=== PATIENT | male | born 1955 | race Caucasian/White ===

== ENCOUNTER → 2018-01-29 14:30 | Outpatient (REF) | payer OTHER, SELFPAY ==
[2018-01-29 18:24] LABS: Basophils % 0.6 % (0.1-2.0); Eosinophils # 0.2 K/mm3 (0.0-0.4); Eosinophils % 2.3 % (0.1-12.0); Hematocrit 43.5 % (42.0-52.0); Hemoglobin 14.2 g/dL (14.1-18.0); Lymphocytes # 1.7 K/mm3 (0.7-4.5); Lymphocytes % 24.1 K/mm3 (10-50); Mean Corpuscular HGB Conc 32.6 g/dL (31.8-35.4); Mean Corpuscular Hemoglobin 30.4 pg (27.0-31.2); Mean Corpuscular Volume 93.2 fl (80-94); Mean Platelet Volume 8.1 fl (7.4-10.4); Monocytes # 0.5 K/mm3 (0.1-1.0); Monocytes % 6.6 % (1.7-9.3); Neutrophils # 4.5 K/mm3 (1.8-7.8); Neutrophils % 66.3 % (37.0-80.0); Platelet Count 228 K/mm3 (142-424); Red Blood Count 4.67 M/mm3 (4.60-6.20); Red Cell Distribution Width 14.1 % (11.5-17.5); White Blood Count 6.8 K/mm3 (4.8-10.8)
[2018-01-29 19:32] LABS: Hemoglobin A1C 5.6 % (0.0-7.0)
[2018-01-29 20:44] LABS: Alanine Aminotransferase 35 U/L (12-78); Albumin Level 3.8 gm/dL (3.4-5.0); Alkaline Phosphatase 88 U/L (46-116); Anion Gap 14.1 mEq/L (5-15); Aspartate Amino Transferase 21 U/L (15-37); Bilirubin,Total 0.6 mg/dL (0.2-1.0); Blood Urea Nitrogen 13 mg/dL (7-18); Calcium 9.3 mg/dL (8.5-10.1); Carbon Dioxide 26 mmol/L (21.0-32.0); Chloride 102 mmol/L (98-107); Chol/HDL Ratio 5.9 (1-3.5); Cholesterol 184 mg/dL (140-200); Estimated Glomerular Filt Rate 76 ml/min (>60); Free T4 (Free Thyroxine) 0.95 ng/dl (0.76-1.46); GFR (African American) 92 ML/MIN (>60); Globulin 3.9 gm/dl (1.3-3.2); Glucose 83 mg/dL (74-106); HDL Cholesterol 31 mg/dL (27-67); Potassium 4.1 mmoL/L (3.5-5.1); Sodium 138 mmol/L (136-145); Thyroid Stimulating Hormone 1.89 uIU/ml (0.358-3.740); Total Protein,Serum 7.7 gm/dL (6.4-8.2); Triglycerides 427 mg/dL (30-200)
[2018-01-31 18:28] LABS: Vitamin D 25 Hydroxy 29.5 ng/mL (30.0-100.0)
== END ==
LOC: LAB 14:30
PROVIDERS: Visit Provider Nurse Practitioner Family
DX: R53.83 Other fatigue (principal)
CPT/HCPCS: 80053; 80061; 82652; 83036; 84439; 84443; 85025

== ENCOUNTER → 2018-05-22 14:05 | Outpatient (CLI) | payer OTHER, SELFPAY ==
[2018-05-22 15:06] LABS: Alanine Aminotransferase 38 U/L (12-78); Albumin/Globulin Ratio 1.1 (1.1-1.8); Alkaline Phosphatase 79 U/L (46-116); Anion Gap 14.3 mEq/L (5-15); Aspartate Amino Transferase 22 U/L (15-37); Bilirubin,Total 0.5 mg/dL (0.2-1.0); Blood Urea Nitrogen 9 mg/dL (7-18); Calcium 9.3 mg/dL (8.5-10.1); Carbon Dioxide 28 mmol/L (21.0-32.0); Chloride 102 mmol/L (98-107); Chol/HDL Ratio 5.5 (1-3.5); Cholesterol 176 mg/dL (140-200); Creatinine,Serum 1.06 mg/dL (0.70-1.30); Estimated Glomerular Filt Rate 71 ml/min (>60); GFR (African American) 85 ML/MIN (>60); Globulin 3.8 gm/dl (1.3-3.2); Glucose 71 mg/dL (74-106); HDL Cholesterol 32 mg/dL (27-67); LDL Cholesterol 87 mg/dL (0-130); Potassium 4.3 mmoL/L (3.5-5.1); Sodium 140 mmol/L (136-145); T4 (Thyroxine) 8.4 ug/dl (4.7-13.3); Thyroid Stimulating Hormone 1.68 uIU/ml (0.358-3.740); Total Protein,Serum 7.8 gm/dL (6.4-8.2); Triglycerides 286 mg/dL (30-200); VLDL Cholesterol 57 mg/dL (0-40)
[2018-05-22 15:19] LABS: Basophils # 0.1 K/mm3 (0-0.2); Basophils % 0.9 % (0.1-2.0); Eosinophils # 0.1 K/mm3 (0.0-0.4); Eosinophils % 2.2 % (0.1-12.0); Hematocrit 42.7 % (42.0-52.0); Lymphocytes # 1.6 K/mm3 (0.7-4.5); Lymphocytes % 28.3 % (10-50); Mean Corpuscular HGB Conc 32.9 g/dL (31.8-35.4); Mean Corpuscular Hemoglobin 29.8 pg (27.0-31.2); Mean Corpuscular Volume 90.8 fl (80-94); Mean Platelet Volume 8.7 fl (7.4-10.4); Monocytes # 0.4 K/mm3 (0.1-1.0); Monocytes % 6.3 % (1.7-9.3); Neutrophils # 3.5 K/mm3 (1.8-7.8); Neutrophils % 62.3 % (37.0-80.0); Platelet Count 231 K/mm3 (142-424); Red Blood Count 4.71 M/mm3 (4.60-6.20); Red Cell Distribution Width 13.8 % (11.5-17.5); White Blood Count 5.6 K/mm3 (4.8-10.8)
[2018-05-23 12:15] LABS: PSA, Free 0.35 ng/mL; Prostate Specific Ag 2.8 ng/mL (0.0-4.0); Vitamin D 25 Hydroxy 32.2 ng/mL (30.0-100.0)
[2018-05-26 06:09] LABS: Testosterone, Total, LC/MS 269.9 ng/dL (264.0-916.0); Testosterone,Free 5.3 pg/mL (6.6-18.1)
== END ==
PROVIDERS: PCP Nurse Practitioner Family; Visit Provider Nurse Practitioner Family
DX: F52.0 Hypoactive sexual desire disorder (principal); R53.83 Other fatigue
CPT/HCPCS: 80053; 80061; 82652; 84153; 84154; 84402; 84403; 84436; 84443; 85025

== ENCOUNTER → 2020-07-20 14:04 | Outpatient (CLI) | payer MEDICARE, MEDICAID, SELFPAY ==
[2020-07-20 14:17] LABS: Basophils # 0.1 K/mm3 (0-0.2); Basophils % 0.8 % (0.1-2.0); Eosinophils # 0.1 K/mm3 (0.0-0.4); Eosinophils % 1.7 % (0.1-12.0); Hematocrit 44.3 % (42.0-52.0); Hemoglobin 14.1 g/dL (14.1-18.0); Lymphocytes # 1.9 K/mm3 (0.7-4.5); Lymphocytes % 26.2 % (10-50); Mean Corpuscular HGB Conc 31.7 g/dL (31.8-35.4); Mean Corpuscular Hemoglobin 29.7 pg (27.0-31.2); Mean Corpuscular Volume 93.6 fl (80-94); Mean Platelet Volume 8.1 fl (7.4-10.4); Monocytes # 0.5 K/mm3 (0.1-1.0); Monocytes % 6.4 % (1.7-9.3); Neutrophils # 4.6 K/mm3 (1.8-7.8); Neutrophils % 64.8 % (37.0-80.0); Platelet Count 229 K/mm3 (142-424); Red Blood Count 4.73 M/mm3 (4.60-6.20); Red Cell Distribution Width 13.9 % (11.5-17.5); White Blood Count 7.1 K/mm3 (4.8-10.8)
[2020-07-20 14:28] LABS: Alanine Aminotransferase 25 U/L (12-78); Albumin Level 4.5 g/dl (3.5-5.0); Albumin/Globulin Ratio 1.3 (1.1-1.8); Alkaline Phosphatase 79 U/L (38-126); Anion Gap 13.2 mEq/L (5-15); Aspartate Amino Transferase 25 U/L (17-59); Bilirubin,Total 0.8 mg/dl (0.2-1.3); Blood Urea Nitrogen 17 mg/dl (9-20); Carbon Dioxide 28 mmol/L (22.0-30.0); Chloride 100 mmol/L (98-107); Chol/HDL Ratio 4.3 (1-3.5); Cholesterol 194 mg/dl (140-200); Estimated Glomerular Filt Rate 75 ml/min (>60); GFR (African American) 91 ML/MIN (>60); Globulin 3.4 g/dL (1.3-3.2); Glucose 108 mg/dl (74-100); HDL Cholesterol 45 mg/dl (40-60); Potassium 4.2 mmoL/L (3.5-5.1); Sodium 137 mmol/L (136-145); Total Protein,Serum 7.9 g/dl (6.3-8.2); Triglycerides 270 mg/dl (30-150); VLDL Cholesterol 54 mg/dL (0-40)
[2020-07-20 14:38] LABS: Direct LDL Cholesterol 102.12 mg/dL (100-129)
[2020-07-20 14:47] LABS: Free T4 (Free Thyroxine) 1.12 ng/dl (0.78-2.19)
[2020-07-20 15:02] LABS: Prostate Specific Ag Screen 2.6 ng/ml (0.0-4.0); Thyroid Stimulating Hormone 2.42 uIU/mL (0.465-4.68)
== END ==
PROVIDERS: Visit Provider Nurse Practitioner Family
DX: R53.83 Other fatigue (principal); Z12.5 Encounter for screening for malignant neoplasm of prostate; E78.00 Pure hypercholesterolemia, unspecified
CPT/HCPCS: 80053; 80061; 84439; 84443; 85025; G0103

== ENCOUNTER → 2021-04-17 13:28 | Outpatient (CLI) | payer MEDICARE, MEDICAID, SELFPAY ==
[2021-04-17 14:01] LABS: Chloride 103 mmol/L (98-107); Potassium 5.1 mmoL/L (3.5-5.1); Sodium 137 mmol/L (136-145)
[2021-04-17 14:04] LABS: Anion Gap 12.1 mEq/L (5-15); Blood Urea Nitrogen 12 mg/dl (9-20); Carbon Dioxide 27 mmol/L (22.0-30.0); Estimated Glomerular Filt Rate 97 ml/min (>60); GFR (African American) 117 ML/MIN (>60)
[2021-04-17 14:05] LABS: Calcium 9.7 mg/dl (8.4-10.2); Chol/HDL Ratio 5.4 (1-3.5); Cholesterol 205 mg/dl (140-200); Glucose 103 mg/dl (74-100); HDL Cholesterol 38 mg/dl (40-60); Triglycerides 317 mg/dl (30-150); VLDL Cholesterol 63 mg/dL (0-40)
[2021-04-17 14:17] LABS: Direct LDL Cholesterol 109.74 mg/dL (100-129)
== END ==
PROVIDERS: Visit Provider Nurse Practitioner Family
DX: I10 Essential (primary) hypertension (principal)
CPT/HCPCS: 80048; 80061

== ENCOUNTER 2024-03-25 08:59 | Outpatient (CLI) | payer MEDICARE, MEDICAID, SELFPAY ==
[2024-03-25 19:05] LABS: Basophils # 0.1 K/mm3 (0-0.2); Eosinophils # 0.1 K/mm3 (0.0-0.4); Eosinophils % 1.8 % (0.1-12.0); Hematocrit 49.5 % (42.0-52.0); Hemoglobin 15.3 g/dL (14.1-18.0); Lymphocytes # 1.7 K/mm3 (0.7-4.5); Lymphocytes % 25.9 % (10-50); Mean Corpuscular Hemoglobin 31.6 pg (27.0-31.2); Mean Corpuscular Volume 102.1 fl (80-94); Mean Platelet Volume 10.2 fl (7.4-10.4); Monocytes # 0.4 K/mm3 (0.1-1.0); Monocytes % 5.5 % (1.7-9.3); Neutrophils # 4.3 K/mm3 (1.8-7.8); Neutrophils % 65.8 % (37.0-80.0); Platelet Count 220 K/mm3 (142-424); Red Blood Count 4.85 M/mm3 (4.60-6.20); Red Cell Distribution Width 14.6 % (11.5-17.5); White Blood Count 6.6 K/mm3 (4.8-10.8)
[2024-03-25 19:26] LABS: Alanine Aminotransferase 22 U/L (12-78); Albumin Level 3.9 g/dl (3.5-5.0); Albumin/Globulin Ratio 1.2 (1.1-1.8); Alkaline Phosphatase 77 U/L (38-126); Anion Gap 7.1 mEq/L (5-15); Aspartate Amino Transferase 30 U/L (17-59); Blood Urea Nitrogen 16 mg/dl (9-20); Calcium 9.2 mg/dl (8.4-10.2); Carbon Dioxide 27 mmol/L (22.0-30.0); Chloride 105 mmol/L (98-107); Chol/HDL Ratio 4.1 (1-3.5); Cholesterol 188 mg/dl (140-200); Estimated Glomerular Filt Rate 96 ml/min (>60); GFR (African American) 116 ML/MIN (>60); Globulin 3.3 g/dL (1.3-3.2); Glucose 102 mg/dl (74-100); HDL Cholesterol 46 mg/dl (40-60); Potassium 4.1 mmoL/L (3.5-5.1); Sodium 135 mmol/L (136-145); Total Protein,Serum 7.2 g/dl (6.3-8.2); Triglycerides 178 mg/dl (30-150); VLDL Cholesterol 36 mg/dL (0-40)
[2024-03-25 19:37] LABS: Direct LDL Cholesterol 108.12 mg/dL (100-129)
[2024-03-25 19:42] LABS: 25-OH Vitamin D, Total 32.1 ng/mL (30-100)
[2024-03-25 19:57] LABS: Prostate Specific Ag Screen 2.7 ng/ml (0.0-4.0)
[2024-03-26 08:05] LABS: HIV (1&2) Antibody Rapid NONREACTIVE (NONREACTIVE)
[2024-03-27 09:57] LABS: HBsAg Screen Negative (Negative); HCV Ab Non Reactive (Non Reactive); Hep A Ab, IGM Negative (Negative); Hep B Core Ab, IgM Negative (Negative)
== END 2024-03-25 23:59 | disposition home or self-care (01) ==
LOC: LAB.DROPOF 03-26 13:42
PROVIDERS: PCP Nurse Practitioner Family; Visit Provider Nurse Practitioner Family
DX: K75.9 Inflammatory liver disease, unspecified (principal); I10 Essential (primary) hypertension; Z11.4 Encounter for screening for human immunodeficiency virus [HIV]; Z11.59 Encounter for screening for other viral diseases; Z91.89 Other specified personal risk factors, not elsewhere classified; E55.9 Vitamin D deficiency, unspecified; Z12.5 Encounter for screening for malignant neoplasm of prostate
CPT/HCPCS: 80053; 80061; 80074; 82306; 84443; 85025; 86803; 87389; G0103

== ENCOUNTER 2025-03-23 10:16 | Outpatient (CLI) | payer MEDICARE, MEDICAID, SELFPAY ==
--- OUTSIDE RECORDS SUMMARY | 2025-01-28 09:00 | XMS_ITS | Encounter Summary ---
Author Organization [place] [address] Care Team Providers Care Retaining Room Cutter Name Role Phone Jayjay Brown MD Primary Care Provider + [phone] Reason for Visit * Reason Comments Follow-up Back Pain Medication Refill Encounter Details Date Type Department Care Team (Latest Contact Info) Description 01/28/2025 9:00 AM EDT Office Visit [facility] [address] [place] [address] Andreina Parra APRN [address] [phone] Degeneration of intervertebral disc of lumbar region with discogenic back pain (Primary Dx); Lumbosacral spondylosis without myelopathy; Chronic pain syndrome Social History Tobacco Use Types Packs/Day Years Used Date Smoking Tobacco: Every Day Cigarettes 1.5 50 Smokeless Tobacco: Never Tobacco Cessation:Ready to Q uit: Not Asked; Counseling Given: Not Answered Alcohol Use Standard Drinks/Week Comments Yes 12 (1 standard drink = 0.6 oz pu re alcohol) Per week Sex and Gender Information Value Date Recorded Sex Assigned at Not on file Legal Sex Male 9:23 PM EDT Gender Identity Not on file Sexual Orientation Not on file documented as of this encounter Last Filed Vital Signs Vital Sign Reading Time Taken Comments Blood Pressure - - Pulse - - Temperature - - Respiratory Rate - - Oxygen Saturation - - Inhaled Oxygen Concentration - - Weight 77.1 kg (170 lb) 01/28/2025 9:03 AM EDT Height 177.8 cm (5' 10 ) 01/28/2025 9:03 AM EDT Body Mass Index 24.39 01/28/2025 9:03 AM EDT documented in this encounter Ordered Prescriptions Prescription Sig Dispense Quantity Refills Last Filled Start Date End Date HYDROcodone-acetam inophen (NORCO) 5-325 mg Oral TabletIndications: Lumbosacral spondylosis without myelopathy,Chronic pain syndrome Take 1 Tablet by mouth every 6 hours as needed for Chronic Pain (G89.29) for up to 30 days. 120 Tablet 03/16/2025 5 HYDROcodone-acetam inophen (NORCO) 5-325 mg Oral TabletIndications: Lumbosacral spondylosis without myelopathy,Chronic pain syndrome Take 1 Tablet by mouth every 6 hours as needed for Chronic Pain (G89.29) for up to 30 days. 120 Tablet 02/14/2025 5 documented in this encounter Progress Notes * Andreina Parra, GOGO - 01/28/2025 9:00 AM EDT Images from the original note were not included. Subjective Subjective: Patient ID: Donell Velazco is a 69 y.o. male who presents today for Chief Complaint Patient presents with Follow-up Back Pain Medication Refill HPI: Donell Velazco is a 69 y.o. male who presents for follow-up evaluation regarding their pain. Symptoms are unchanged since last visit. No interventions for pain were performed since last visit. Chronic back pain. Have discussed injections does not want at this time. No spine surgery. [employer] does provide relief. Characterization of Primary Pain: Location of Pain: Low-back - bilateral Pain Ratin/10 on NRS Quality: aching Temporal Profile: constant with intermittent exacerbations Referral Pattern: Pain is not referred Exacerbating Factors: increased activity and activities of daily living Relieving Factors: rest and medications Associated Symptoms: Patient denies any red flag symptoms such as urinary/bowel incontinence, progressive weakness in the extremities, and/or saddle anesthesia. The patient's current medication regimen partially controls their pain to the point of making theirpain more tolerable. They report >50% improvement in their ability to perform ADL's. No apparentside effects are noted with current medication regimen. Review of Systems Musculoskeletal: Positive for arthralgias and back pain. Past Medical History: Diagnosis Date Arthritis legs Blood circulation, collateral legs Chronic pain syndrome Hypertension Lumbar disc disease Poor historian Past Surgical History: Procedure Laterality Date CATARACT REMOVAL Right 09/04/2020 RIGHT EYE CATARACT EXTRACTION WITH PHACOEMULSIFICATION AND INTRAOCULAR LENS; Surgeon: Paul Freedman MD; Location: [facility]; Service: Ophthalmology CATARACT REMOVAL Left 09/19/2020 LEFT EYE CATARACT EXTRACTION WITH PHACOEMULSIFICATION AND INTRAOCULAR LENS; Surgeon: Paul Freedman MD; Location: [facility]; Service: Ophthalmology DENTAL SURGERY teeth extractions Family History Problem Relation Age of Onset Cancer Mother Heart Disease Father mi Alcohol Abuse Father Anesth Problems Neg Hx Social History Socioeconomic History Marital status: Single Spouse name: Not on file Number of children: Not on file Years of education: Not on file Highest education level: Not on file Occupational History Not on file Tobacco Use Smoking status: Every Day Current packs/day: 1.50 Average packs/day: 1.5 packs/day for 50.0 years (75.0 ttl pk-yrs) Types: Cigarettes Smokeless tobacco: Never Vaping Use Vaping status: Never Used Substance and Sexual Activity Alcohol use: Yes Alcohol/week: 7.2 oz Types: 12 Cans of beer per week Comment: Per week Drug use: Never Sexual activity: Not on file Other Topics Concern Not on file Social History Narrative Not on file Social Drivers of Health Financial Resource Strain: Not on file Food Insecurity: Not on file Transportation Needs: Not on file Physical Activity: Not on file Stress: Not on file Social Connections: Not on file Intimate Partner Violence: Not on file Housing Stability: Not on file Patients past medical, surgical, family and social histories were reviewed and updated. There were no changes except as noted. Current Outpatient Medications: [START ON 03/16/2025] HYDROcodone-acetaminophen (NORCO) 5-325 mg Oral Tablet, Take 1 Tablet by mouth every 6 hours as needed for Chronic Pain (G89.29) for up to 30 days., Disp: 120 Tablet, Rfl: 0 [START ON 02/14/2025] HYDROcodone-acetaminophen (NORCO) 5-325 mg Oral Tablet, Take 1 Tablet by mouth every 6 hours as needed for Chronic Pain (G89.29) for up to 30 days., Disp: 120 Tablet, Rfl: 0 Ketorolac Tromethamine 0.4 % Opht Drops, Place 1 Drop into the right eye 4 times daily., Disp: , Rfl: lisinopril (PRINIVIL;ZESTRIL) 20 mg Oral Tablet, Take 20 mg by mouth every morning., Disp: , Rfl: moxifloxacin (VIGAMOX) 0.5 % Opht Drops, Place 1 Drop into the right eye 4 times daily., Disp: , Rfl: prednisoLONE acetate (PRED FORTE) 1 % Opht Drops, Suspension, Place 1 Drop into the right eye 4 times daily., Disp: , Rfl: sildenafiL, pulm.hypertension, (REVATIO) 20 mg Oral Tablet, 20 mg as needed., Disp: , Rfl: Objective Objective: Vitals: 01/28/25 0903 Weight: 170 lb (77.1 kg) Height: 5' 10 (1.778 m) Body mass index is 24.39 kg/m??. Physical Exam Vitals and nursing note reviewed. Constitutional: General: He is not in acute distress. Appearance: He is well-developed. He is not diaphoretic. HENT: Head: Normocephalic and atraumatic. Right Ear: External ear normal. Left Ear: External ear normal. Eyes: Pupils: Pupils are equal, round, and reactive to light. Pulmonary: Effort: Pulmonary effort is normal. No respiratory distress. Musculoskeletal: Cervical back: Normal range of motion. Lumbar back: Tenderness present. Decreased range of motion. Skin: General: Skin is warm and dry. Neurological: Mental Status: He is alert and oriented to person, place, and time. Cranial Nerves: No cranial nerve deficit. Sensory: No sensory deficit. Psychiatric: Behavior: Behavior normal. Thought Content: Thought content normal. Judgment: Judgment normal. Image Review: Results for orders placed during the hospital encounter of 02/18/18 MRI LUMBAR SPINE WO CONTRAST Narrative MRI LUMBAR SPINE WITHOUT CONTRAST, 02/18/2018 3:54 PM CLINICAL HISTORY: M54.5-Low back [id number]-CM G89.29-Other chronic [id number]-CM COMPARISON: 12/23/2017 PROCEDURE COMMENTS: Multiplanar multiecho MR imaging of the lumbar spine without contrast. FINDINGS: No acute spine fracture. Normal conus position and signal. No concerning marrow replacement. Mild S-shaped scoliosis noted. Mild straightening of the spine noted. No subluxation or pars defect detected. Barraza findings by level include: L1/L2: Unremarkable. L2/L3: Degenerative with a shallow focal central protrusion. Mild mass effect noted on the thecal sac. No canal or foraminal stenosis detected. L3/L4: This disc is likewise degenerative. Disc protrusion noted extending into the right foramen. There is mild mass effect on the thecal sac and mild right foraminal narrowing the left foramen and central canal are nonstenotic. L4/L5: Degenerative with loss of disc space height and T2 signal. Annular tear identified. A central broad-based subligamentous disc protrusion noted with mild mass effect to moderate mass effect on the thecal sac and mild extension to the foramina left greater than right. No high-grade canal or foraminal stenosis identified. L5/S1: Central and slightly left paracentral protrusion noted with mild mass effect on the thecal sac and S1 nerve roots. No canal or foraminal stenosis detected. Impression : Multilevel degenerative disc disease and disc protrusions as described above. See report. No high-grade canal or foraminal stenosis. No results found for this or any previous visit. No results found for this or any previous visit. No results found for this or any previous visit. No results found for this or any previous visit. No results found for this or any previous visit. No results found for this or any previous visit. Prescription Monitoring Program: 05/21/2019 8:26 AM AMB SPINE RISK TOOL (ORT) [facility] Reference Number [id number] [facility] Results as expected 05/21/2018 9:51 AM 06/18/2018 11:05 AM 08/13/2018 9:21 AM 10/14/2018 2:10 PM 12/01/2018 8:43 AM 03/24/2019 8:24 AM 05/21/2019 8:26 AM CONTROLLED SUBSTANCE Is Consent for treatment completed? Yes Date consent completed 05/21/2018 Are you currently taking your controlled medication regularly? Yes (comment) When did you take your last dose? this am 05/21/18 Are you using any illegal drugs? No Are you taking any controlled medications which are not prescribed by our practice? No Have you taken any cough syrup recently? No Prescribed medications present in urine? All Present Did the patient test positive for any substances not prescribed? None Present Urine Drug Screen Comments last UDS 01/22/18 01.26.2019 [facility] Reference Number [id number] [facility] Results as expected as expected as expected as expected as expected as expected as expected How often do you have mood swings? 2 How often have you taken medication other than the way it was prescribed? 0 How often have you used illegal drugs (for example, Marijuana, cocaine, narcotics, etc) in the past5 years? 0 How often, in your lifetime, have you had legal problems or been arrested? 1 SOAPP SCORE - A SOAPP score of 7 or above will identify 91% of individuals who actually cross tie turner mahad at high risk. 7 Have you ever felt you needed to cut down on your drinking? No Have people annoyed you by criticizing your drinking? No Have you ever felt guilty about drinking? No Have you ever felt you needed a drink first thing in the morning (eye-termite control servicer) to steady your nervesor to get rid of a hangover? No Over the past 2 weeks, have you ever felt down, depressed, or hopeless? No Have you felt little interest or pleasure in doing things? No Lab Results Component Value Date UAMPHET Negative 01/26/2019 LABBARB Absent 12/08/2024 LABBENZ Negative 01/26/2019 UBUPREN Negative 01/26/2019 UCARISO Negative 01/26/2019 COCAINEMETAB Negative 01/26/2019 UMEPERI Negative 01/26/2019 METHADONEAND Negative 01/26/2019 OPIATE Positive 01/26/2019 OXYCODONELVL Negative 01/26/2019 LABPHEN Negative 01/26/2019 UPROPOX Negative 01/26/2019 UTAPENT Negative 01/26/2019 UTRAMAD Negative 01/26/2019 CANNABINOIDM Absent 01/06/2020 UZOLPID Negative 01/26/2019 URINECREARUP 72.9 01/26/2019 DRUGPANELINT See Note 01/26/2019 Lab Results Component Value Date DRUGEXPECT [employer](TM) (hydrocodone) 12/08/2024 URCREATININE >25.0 10/25/2020 ALPRAZOLAM <8 12/08/2024 AHDALPRAZ <25 12/08/2024 CLONAZEPAM <10 12/08/2024 7AMNCLON <25 12/08/2024 DIAZEPAM <10 12/08/2024 NORDIAZEPAM <25 12/08/2024 FLUNITRAZ <50 12/08/2024 7AMNFLUN <50 12/08/2024 FLURAZEPAM <50 12/08/2024 HDXYETFLUR <50 12/08/2024 LORAZEPAM <50 12/08/2024 LORAZGLUC <50 12/08/2024 MIDAZOLAM <50 12/08/2024 AHDMIDAZ <50 12/08/2024 OXAZEPAM <50 12/08/2024 OXAZGLUC <50 12/08/2024 TEMAZEPAM <50 12/08/2024 TEMAZGLUC <50 12/08/2024 TRIAZOLAM <50 12/08/2024 AHDTRIAZ <50 12/08/2024 CALENDERER/SHIMON and most recent UDS reviewed on 01/31/2025 as available. . Assessment and Plan: Diagnoses and all orders for this visit: Degeneration of intervertebral disc of lumbar region with discogenic back pain Lumbosacral spondylosis without myelopathy - HYDROcodone-acetaminophen (NORCO) 5-325 mg Oral Tablet; Take 1 Tablet by mouth every 6 hours as needed for Chronic Pain (G89.29) for up to 30 days. Dispense: 120 Tablet; Refill: 0 Chronic pain syndrome - HYDROcodone-acetaminophen (NORCO) 5-325 mg Oral Tablet; Take 1 Tablet by mouth every 6 hours as needed for Chronic Pain (G89.29) for up to 30 days. Dispense: 120 Tablet; Refill: 0 Plan: - consider TPIs - Continue medication(s) as previously prescribed as there are no new symptoms, change in location,sustained increase in pain level, or interval changes in medical condition. Patient reports increased activity and improved functionality with medication use and endorses no adverse reactions. No aberrant behavior or medication abuse is evident. -UDS November 2024 reviewed and consistent I discussed the risks and benefits of the use of opioids with the patient, including the risk of tolerance and drug dependence. Along with intermediate teacher use of these medications can lead to but is not limited to side effects such as weight gain, fatigue, depression, increased risk for heart attacks, immunosuppression, etc. - We discussed that he will continue Physical Therapy/Home Exercise Program for at least 4-6 weeks prior to re-evaluation. - Return in about 8 weeks (around 03/25/2025). Andreina Parra APRN Interventional Pain Management [facility] documented in this encounter Miscellaneous Notes * Patient Instructions - Andreina Parra APRN - 01/28/2025 9:00 AM EDT 02/14/25 03/16/25 documented in this encounter Plan of Treatment Upcoming Encounters Date Type Department Care Team (Late st Contact Info) Description 04/06/2025 7:30 AM EDT Office Visit [facility] [address] [place] [address] Andreina Parra APRN [address] [place] [address] documented as of this encounter Goals Goal Patient Goal Type Associated Problems Recent Progress Patient-Stated? Author Blood Pressure < 140/90 Blood Pressure 157/91(2024 4:35 PM EDT) Ansley Wilson Maintain a healthy diet, exercise regularly and maintain an ideal body weight General No Megan Lewis Stay Tobacco Free Lifestyle No Megan Lewis documented as of this encounter Visit Diagnoses Diagnosis Degeneration of intervertebral disc of lumbar region with discogenic back pain- Primary Lumbosacral spondylosis without myelopathy Chronic pain syndrome documented in this encounter Discontinued Medications Medication Sig Discontinue Reason Start Date End Da te HYDROcodone-acetaminophe n (NORCO) 5-325 mg Oral TabletIndications:Lumbos acral spondylosis without myelopathy,Chronic pain syndrome Take 1 Tablet by mouth every 6 hours as needed for Chronic Pain (G89.29) for up to 30 days. Reorder 01/15/2025 01/28/2025 HYDROcodone-acetaminophe n (NORCO) 5-325 mg Oral TabletIndications:Lumbos acral spondylosis without myelopathy,Chronic pain syndrome Take 1 Tablet by mouth every 6 hours as needed for Chronic Pain (G89.29) for up to 30 days. Reorder 12/17/2024 01/28/2025 documented as of this encounter Care Teams Retaining Room Cutter Relationship Specialty Start Date End Date Jayjay Brown MD [address] [place] [id number] PCP - General Emergency Medicine 04/17/17 documented as of this encounter
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
[2025-03-23 16:05] LABS: Hematocrit 45.3 % (42.0-52.0); Hemoglobin 15.0 g/dL (14.1-18.0); Immature Granulocytes % 0.6 %; Mean Corpuscular HGB Conc 33.1 g/dL (31.8-35.4); Mean Corpuscular Hemoglobin 30.6 pg (27.0-31.2); Mean Corpuscular Volume 92.4 fl (80-94); Nucleated Red Blood Cells % 0 %; Platelet Count 232 K/mm3 (142-424); Red Blood Count 4.90 M/mm3 (4.60-6.20); Red Cell Distribution Width-SD 46.6 fL; White Blood Count 7.2 K/mm3 (4.8-10.8)
[2025-03-23 16:17] LABS: Alanine Aminotransferase 17 U/L (12-78); Albumin Level 4.1 g/dl (3.5-5.0); Albumin/Globulin Ratio 1.4 (1.1-1.8); Alkaline Phosphatase 98 U/L (38-126); Anion Gap 11.2 mEq/L (5-15); Aspartate Amino Transferase 23 U/L (17-59); Bilirubin,Total 0.7 mg/dl (0.2-1.3); Blood Urea Nitrogen 14 mg/dl (9-20); Calcium 9.8 mg/dl (8.4-10.2); Carbon Dioxide 27 mmol/L (22.0-30.0); Chloride 105 mmol/L (98-107); Creatinine,Serum 0.80 mg/dl (0.66-1.25); Estimated Glomerular Filt Rate 96 ml/min (>60); GFR (African American) 116 ML/MIN (>60); Globulin 3.0 g/dL (1.3-3.2); Glucose 109 mg/dl (74-100); Potassium 4.2 mmoL/L (3.5-5.1); Sodium 139 mmol/L (136-145); Total Protein,Serum 7.1 g/dl (6.3-8.2)
[2025-03-23 16:48] LABS: Thyroid Stimulating Hormone 1.58 uIU/mL (0.465-4.68)
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
--- OUTSIDE RECORDS SUMMARY | 2025-03-25 09:30 | XMS_ITS | Encounter Summary ---
Author Organization [place] [address] Care Team Providers Care Chip Drier Name Role Phone Jayjay Brown MD Primary Care Provider + [phone] Encounter Details Date Type Department Care Team (Late st Contact Info) Description 12/18/2024 Results Follow-Up [facility] [address] [place] [address] Andreina Parra APRN [address] [place] [address] COMPLIANCE PANEL, URINE Social History Tobacco Use Types Packs/Day Years [...] on file documented as of this encounter Plan of Treatment Upcoming Encounters Date Type Department Care Team (Late st Contact Info) Description 04/06/2025 7:30 AM EDT Office Visit [facility] [address] [place] [address] Andreina Parra APRN [address] [place] [address] documented as of this encounter Goals Goal Patient Goal Type Associated Problems Recent Progress Patient-Stated? Author Blood Pressure < 140/90 Blood Pressure 157/91(2024 4:35 PM EDT) No Ansley Gama Maintain a healthy diet, exercise regularly and maintain an ideal body weight General No Megan Lewis Stay Tobacco Free Lifestyle No Megan Lewis documented as of this encounter Visit Diagnoses Not on filedocumented in this encounter Care Teams Chip Drier Relationship Specialty Start Date End Date Jayjay Brown MD [address] [place] [address] [place] [id number] PCP - General Emergency Medicine 04/17/17 documented as of this encounter
== END 2025-03-23 23:59 ==
LOC: LAB.DROPOF 03-25 09:28
PROVIDERS: PCP Nurse Practitioner Family; Visit Provider Nurse Practitioner Family
DX: I10 Essential (primary) hypertension (principal)
CPT/HCPCS: 80053; 84443; 85025